=== PATIENT | female | born 2000 | race African-American/Black ===

== ENCOUNTER 2022-06-07 14:31 | Emergency (ER) | payer SELFPAY ==
[~2022-06-07] VITALS: Ht 167.6 cm; Wt 86.6 kg
[2022-06-07 14:35] VITALS: TEMP 98
[2022-06-07 15:23] LABS: BASO % 0.4 % (0.0-2.0); EOS # 0.1 K/mm3 (0.0-0.7); EOS % 1.1 % (0.0-4.0); GRAN # 3.5 K/mm3 (1.4-6.5); GRAN % 61.8 % (42.2-75.2); HEMOGLOBIN 10.8 g/dl (12.5-16.0); LYMPH # 1.5 K/mm3 (1.2-3.4); LYMPH % 26.1 % (20.0-51.0); MEAN CELL VOLUME 89 fl (80.0-100.0); MEAN CORPUSCULAR HEMOGLOBIN 31 pg (27-31); MEAN CORPUSCULAR HGB CONC 35 g/dl (33.0-37.0); MEAN PLATELET VOLUME 9.8 fl (7.4-10.4); MONO # 0.6 K/mm3 (0.1-0.6); MONO % 9.9 % (1.7-9.3); PLATELET COUNT 293 K/mm3 (130-400); RED BLOOD COUNT 3.49 M/mm3 (4.10-5.30); REDCELL DISTRIBUTION WIDTH-CV 13.1 % (11.5-14.5)
[2022-06-07 15:24] LABS: HEMATOCRIT 31.1 % (37.0-47.0)
[2022-06-07 15:38] LABS: ALBUMIN 3.3 gm/dL (3.5-5.0); BILIRUBIN,TOTAL 0.3 mg/dL (0.2-1.2); C-REACTIVE PROTEIN 0.93 mg/dL (0.00-0.50); CALCIUM 9.6 mg/dL (8.4-10.2); CREATININE, serum 0.66 mg/dL (0.57-1.11); POTASSIUM 3.8 mmol/L (3.5-4.5); TOTAL PROTEIN 7.5 gm/dL (6.2-8.1)
[2022-06-07 16:10] LABS: COLLECTION METHOD CLEAN CATCH
[2022-06-07 16:17] LABS: SQUAMOUS EPITHELIAL 0-2 /hpf (0-10); URINE BACTERIA None Seen /hpf (NONE SEEN); URINE RBC 0-2 /hpf (0-2)
[2022-06-07 16:18] LABS: URINE APPEARANCE Clear (CLEAR/HAZY); URINE BLOOD Negative (NEGATIVE); URINE COLOR Yellow (YELLOW); URINE GLUCOSE Negative (NEGATIVE); URINE KETONE Negative (NEGATIVE); URINE NITRATE Negative (NEGATIVE); URINE PROTEIN(semi-quant) Negative (NEGATIVE); URINE UROBILINOGEN 0.2 E.U/dL (0.2-1.0)
[2022-06-07] MEDS ORDERED: PHENERGAN 25 TA25 MG PO (16:19)
[2022-06-07] MEDS ORDERED: NORCO 325 MG-51 TAB PO (16:19)
[2022-06-07 16:35] VITALS: BP 108/65; PULSE 69
== END 2022-06-07 16:36 | disposition home or self-care (01) ==
LOC: COL.ER 14:31
PROVIDERS: Nurse Practitioner
DX: O99.612 Diseases of the digestive system complicating pregnancy, second trimester (principal); K80.20 Calculus of gallbladder without cholecystitis without obstruction; Z3A.17 17 weeks gestation of pregnancy; Z28.310 Unvaccinated for COVID-19
CPT/HCPCS: J2270; J2550; J7030

== ENCOUNTER 2023-12-21 11:06 | Emergency (ER) | payer MEDICAID ==
[~2023-12-21] VITALS: Ht 167.6 cm; Wt 88.6 kg
[~2023-12-21 11:06] MED LIST: ALBUTEROL0.83 MG/ML IH; BENADRYL25 M2 PO; EPIPEN 2-PAK1 MG/ML IM; IBU600 MG PO; IRON TABLETS325 MG PO; NEB MC; NORCO 325 MG-51 TAB PO; PEPCID 20MG TAB20 MG PO; PHENERGAN 25 TA25 MG PO; PROAIR HFA0.09 MG/AC IH; PROFERRIN ES12 MG PO; ROXICODONE 55 MG/TAB PO; SENEXON-S 50-81 EACH PO; TYLENOL 500MG500 MG PO; ZOLOFT 50MG50 MG PO
[2023-12-21 11:11] VITALS: BP 118/78; PULSE 94; TEMP 98.4
== END 2023-12-21 11:58 | disposition home or self-care (01) ==
LOC: COL.ER 11:06
DX: R09.81 Nasal congestion (principal); F32.A Depression, unspecified; Z79.899 Other long term (current) drug therapy